=== PATIENT | male | born 1975 | race Caucasian/White ===

== ENCOUNTER 2022-07-29 18:40 | Emergency (ER) | payer SELFPAY ==
[~2022-07-29] VITALS: Ht 162.6 cm; Wt 54.4 kg
[2022-07-29 18:42] VITALS: BP 133/85
--- NOTE | 2022-07-29 18:50 | NUR ---
side rails padded
--- NOTE | 2022-07-29 18:56 | NUR ---
here for possible syncope, reports having sz earlier today, pt oriented times 4, nad, denies any pain, nsr on cm, o2 sat 99% ra, sr up times 2 no oral trauma, no head trauma. clothes are wet, removed, now on hospital gown
--- NOTE | 2022-07-29 19:20 | NUR ---
RECEIVED PT IN BED 11, PT RESTING WITH BED RAILS UP AND PADDING ON RAILS.
--- NOTE | 2022-07-29 19:25 | NUR ---
PT TAKEN TO CT.
[2022-07-29 19:27] LABS: CARBON DIOXIDE 29.4 mmol/L (21-32); CREATININE 0.8 mg/dL (0.6-1.3); POTASSIUM 3.4 mmol/L (3.5-5.1)
--- NOTE | 2022-07-29 19:35 | NUR ---
PT RETURNED FROM CT.
[2022-07-29 20:21] VITALS: BP 118/65
[2022-07-29 20:21] LABS: BASOPHILS # (AUTO) 0.1 K/uL (0.00-0.22); BASOPHILS % (AUTO) 0.5 % (0.0-2.0); EOSINOPHILS # (AUTO) 0.1 K/uL (0-0.4); EOSINOPHILS % (AUTO) 0.5 % (0.0-4.0); HEMATOCRIT 45.7 % (36-52); HEMOGLOBIN 15.2 g/dL (12.0-18.0); LYMPHOCYTES # (AUTO) 2.6 K/uL (2.0-11.5); LYMPHOCYTES % (AUTO) 22.9 % (20.5-51.1); MEAN CORPUSCULAR HEMOGLOBIN 29 pg (27-31); MEAN CORPUSCULAR HGB CONC 33 g/dL (33-37); MONOCYTES % (AUTO) 8.9 % (1.7-9.3); NEUTROPHILS # (AUTO) 7.7 K/uL (1.8-7.7); NEUTROPHILS % (AUTO) 67.2 % (42.2-75.2); PLATELET COUNT (AUTO) 302 K/uL (140-450); RED BLOOD CELL COUNT(AUTO) 5.25 MIL/uL (4.20-6.10); RED CELL DISTRIBUTION WIDTH 14.2 % (11.6-13.7); WHITE BLOOD COUNT (AUTO) 11.5 K/uL (4.8-10.8)
--- NOTE | 2022-07-29 23:00 | NUR ---
PT DC'D WAITNG FOR SECUTIRY TO BRING UP DRY CLOTHES FOR PT.
--- NOTE | 2022-07-30 | NUR ---
SECURITY BROUGHT UP CLOTHES FOR PT, RN ASSISTED WITH GETTING PT DRESSED AND INFORMED PT THAT HE COULD WAIT IN THE ER LOBBY UNTIL HOUSE SUP ARRIVES AND POSSIBLY SETS UP AN UBER IN THE AM.
== END 2022-07-30 00:09 | disposition home or self-care (01) ==
LOC: MED 18:40
DX: R56.9 Unspecified convulsions (principal); R55 Syncope and collapse; R53.1 Weakness; Z86.73 Personal history of transient ischemic attack (TIA), and cerebral infarction without residual deficits
CPT/HCPCS: 36415; 70450; 71045; 80048; 84484; 85025; 99285; Q0092